=== PATIENT | female | born 1970 ===

== ENCOUNTER 2018-04-26 13:25 | Emergency (ER) | payer BC ==
[2018-04-26 13:26] VITALS: BMI 32.4
[2018-04-26 13:37] VITALS: RESP 18; TEMP 98.5
[2018-04-26] MEDS ORDERED: Sodium Chloride 0.9% 1,000 ML IV ONE (13:45)
--- NOTE | 2018-04-26 15:03 | C.PDOC ---
History Of Present Illness 48 year old female is brought to the ED by ambulance for evaluation of an allergic reaction. 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 Patient was given epi pen in field. IV access was obtained and patient received Solu-Medrol and Benadryl IV in field. Patient is speaking in complete sentences. Time Seen by Provider: 04/26/18 13:42 Chief Complaint (Nursing): Allergic Reaction History Per: Patient, EMS History/Exam Limitations: no limitations Onset/Duration Of Symptoms: Hrs Current Symptoms Are (Timing): Still Present Context: Food Possible Cause: Food Associated Symptoms: Skin Rash Home/EMS Treatment: Benadryl, Epi-pen, Steroids (solu-medrol ) Additional History Per: Patient Past Medical History Reviewed: Historical Data, Nursing Documentation, Vital Signs Vital Signs: Last Vital Signs Temp 98.5 F 04/26/18 13:29 Pulse 60 04/26/18 14:11 Resp 18 04/26/18 14:11 BP 147/74 04/26/18 14:11 Pulse Ox 96 04/26/18 14:11 - Medical History PMH: HTN, Hypothyroidism Surgical History: No Surg Hx Family History: States: Unknown Family Hx - Social History Hx Alcohol Use: No Hx Substance Use: No - Immunization History Hx Tetanus Toxoid Vaccination: No Hx Influenza Vaccination: No Hx Pneumococcal Vaccination: No Review Of Systems Skin: Positive for: Other (allergic reaction ) Physical Exam - Physical Exam Appears: Non-toxic, No Acute Distress Skin: Warm, Dry, Other (wheals to upper neck ) Head: Atraumatic, Normacephalic Eye(s): bilateral: Normal Inspection Oral Mucosa: Moist Lips: Swelling (lower) Teeth: Other (slightly enlarged tongue ) Throat: Normal, No Erythema, No Exudate, No Drooling, Other (widely patent oropharynx. normal voice ) Neck: Supple Chest: Symmetrical, No Deformity, No Tenderness Cardiovascular: Rhythm Regular, No Murmur Respiratory: Normal Breath Sounds, No Rales, No Rhonchi, No Wheezing, Other (speaking in complete sentences ) Extremity: Normal ROM, Capillary Refill (less than 2 seconds ) Neurological/Psych: Oriented x3, Normal Speech, Normal Cognition ED Course And Treatment O2 Sat by Pulse Oximetry: 96 (on RA) Pulse Ox Interpretation: Normal Progress Note: Pepcid IVP, Prednisone PO and IV Fluids given. Patient was observed in the ED for one hour. Lower lip and tongue swelling seem to have resolved and patient is resting comfortably, showing no signs of respiratory distress. Patient is stable for discharge. Advised to avoid known allergens and to f/u with PMD within 1-2 days for further evaluation. Advised to return to the ED if symptoms persist or worsen. Reassessment Condition: Improved Medical Decision Making Medical Decision Making: acute allergic rxn to shrimp (known prior allergy to same) unclear why ate shrimp today wheals resolving OP remains baseline Disposition Doctor Will See Patient In The: Office Counseled Patient/Family Regarding: Studies Performed, Diagnosis - Disposition Referrals: [facility] [Outside] [facility] [Outside] [facility] [Outside] [facility] [Outside] Disposition: HOME/ ROUTINE Disposition Time: 15:03 Condition: GOOD Additional Instructions: Ud recebio' Solumedrol IV, Prednisona 40 mg por via oral, Pepcid y Benadryl Sigue Benadyl 50 mg cada 6 horas nabil necessario para el picason. Instructions: Food Allergy, Hives (DC) Forms: [facility] (Georgian), Work Excuse Print Language: NEPALESE - Clinical Impression Clinical Impression: Allergic urticaria - Scribe Statement The provider has reviewed the documentation as recorded by the Scribe (Karen Boyd) Provider Attestation: All medical record entries made by the Scribe were at my direction and personally dictated by me. I have reviewed the chart and agree that the record accurately reflects my personal performance of the history, physical exam, medical decision making, and the department course for this patient. I have also personally directed, reviewed, and agree with the discharge instructions and disposition.
[2018-04-26 15:14] VITALS: BP 157/77; PULSE 64
[2018-04-26 17:05] VITALS: O2SAT 96
== END 2018-04-26 15:15 | disposition home or self-care (01) ==
LOC: C.ER 13:25
DX: L50.0 Allergic urticaria (principal)
CPT/HCPCS: 96361; 96374; 99285; J7030